=== PATIENT | male | born 2000 | race Caucasian/White ===

== ENCOUNTER 2025-08-07 08:10 | Day surgery (SDC) | payer OTHER ==
[~2025-08-07] VITALS: Ht 177.8 cm; Wt 93.9 kg
[~2025-08-07 08:10] MED LIST: TRANEXAMIC ACID 100 MG/ML 10ML VIAL As Ordered ONE
[2025-08-07] MEDS ORDERED: LR 1,000 ML IV SCH ×2 (08:45→11:25)
[2025-08-07] MEDS ORDERED: ONDANSETRON 4MG/2ML VIAL As Ordered ONE (09:08)
[2025-08-07] MEDS ORDERED: KETOROLAC 30 MG/ML 1 ML VIAL As Ordered ONE (09:08)
[2025-08-07] MEDS ORDERED: dexAMETHasone 4 MG/ML 1 ML VIAL As Ordered ONE (09:08)
[2025-08-07] MEDS ORDERED: LIDOCAINE 2% 100 MG/5 ML SDV (FOR ANES.) As Ordered ONE (09:08)
[2025-08-07] MEDS ORDERED: MIDAZOLAM INJ 2 MG/2 ML VIAL As Ordered ONE (09:09)
[2025-08-07] MEDS: ceFAZolin SOD 2 GM IV ONCE IV ONE (10:22)
[2025-08-07] MEDS: TRANEXAMIC ACID 100 MG/ML 10ML VIAL IV ONE (10:26)
[2025-08-07] MEDS ORDERED: ACETAMINOPHEN 1000MG/100ML IV BAG As Ordered ONE (10:30)
[2025-08-07] MEDS ORDERED: LIDOCAINE 5% OINT 30 GM TUBE As Ordered ONE (10:43)
[2025-08-07] MEDS: EPINEPHrine 1 MG/ML INJ 30 ML MD-VIAL As Ordered ONE (10:52)
[2025-08-07] MEDS ORDERED: ONDANSETRON 4MG/2ML VIAL IV PRN (11:25)
[2025-08-07] MEDS ORDERED: HYDROMORPHONE HCL 0.5 MG/0.5 ML SYRINGE IV PRN (11:25)
[2025-08-07 12:20] VITALS: BP 113/70; TEMP 96.9; O2SAT 96
== END 2025-08-07 13:08 | disposition home or self-care (01) ==
LOC: M SDC 08:10
PROVIDERS: ATTEND Orthopaedic Surgery
DX: S83.241A Other tear of medial meniscus, current injury, right knee, initial encounter (principal); M25.561 Pain in right knee; M67.51 Plica syndrome, right knee
CPT/HCPCS: 29881; J0131; J0665; J0688; J1100; J1885; J2250; J2405; J3010